=== PATIENT | male | born 1990 | race Caucasian/White ===

== ENCOUNTER 2024-10-03 07:50 | Emergency (ER) | payer MEDICAID ==
[~2024-10-03] VITALS: Ht 167.6 cm; Wt 82.4 kg
[2024-10-03 08:15] LABS: PLATELET COUNT (AUTO) 254 K/uL (150-450); RED BLOOD CELL COUNT(AUTO) 5.46 MIL/uL (4.50-5.90); RED CELL DISTRIBUTION WIDTH 14.3 % (11.5-14.5); WHITE BLOOD COUNT (AUTO) 7.0 K/uL (4.5-11.0)
[2024-10-03 08:16] VITALS: BP 137/88; PULSE 69; RESP 18; TEMP 97.4; O2SAT 98
[2024-10-03 08:33] LABS: CALCIUM, TOTAL 8.8 mg/dL (8.8-10.5); CREATININE 0.83 mg/dL (0.60-1.30); GLOMERULAR FILTR. RATE CALC > 60 mL/min (>60); GLUCOSE,RANDOM 101 mg/dL (70-110); SODIUM SERUM 143 mmol/L (136-145); UREA NITROGEN, BLOOD 9 mg/dL (7-18)
== END 2024-10-03 09:54 | disposition home or self-care (01) ==
LOC: EMS 07:52
DX: F10.129 Alcohol abuse with intoxication, unspecified (principal); F12.90 Cannabis use, unspecified, uncomplicated; F14.90 Cocaine use, unspecified, uncomplicated; F15.90 Other stimulant use, unspecified, uncomplicated; Y90.6 Blood alcohol level of 120-199 mg/100 ml
CPT/HCPCS: 99283; 80048; 85025; 36415; G0480